=== PATIENT | female | born 1935 | race Caucasian/White ===

== ENCOUNTER 2017-06-10 16:38 | Inpatient (IN) | payer OTHER, MEDICARE ==
[~2017-06-10] VITALS: Ht 154.9 cm; Wt 78.0 kg
--- NOTE | ~2017-06-10 | D ---
[facility] [place] [address] DISCHARGE SUMMARY Name: IONA SYED Room #: 364-P [facility] IN M.R.#: [id number] Admission: 06/10/17 Attend Phys: Aneudy Henriquez MD Discharge: 06/13/17 Date of : 31 Report #: [id number] THIS REPORT FOR: //name// CC: Harshal Henriquez FINAL DIAGNOSES: 1. Urinary tract infection. 2. Hypertension. 3. Encephalopathy. HOSPITAL COURSE: The patient was admitted from home with altered mental status. Urinalysis was consistent with infection. Unfortunately, a urine culture was never sent from the ER. It was too late to add once she received antibiotics. However, blood cultures were negative. She was noted to be tachycardic, but I felt this was more related to the fact she had not taken her beta grady for several days. Although she had an elevated white count, lab work was more consistent with dehydration from not eating for several days. She was not placed on sepsis protocol and actually was just treated on a regular medical floor with telemetry monitoring. With IV antibiotics, fluid support, resumption of her home medications, her symptoms improved overnight. PHYSICAL EXAMINATION: GENERAL: By the time of discharge, she was awake and alert with stable vital signs. LUNGS: Clear. HEART: Regular. ABDOMEN: Soft. Normoactive bowel sounds. EXTREMITIES: No edema. DISPOSITION: She will be discharged to home to resume regular diet, activity, medications with Cipro twice a day, home health. Her son is staying with her for several days. Follow up with Dr. Carolina in a week. <ELECTRONICALLY SIGNED> By: Aneudy Henriquez MD 06/14/17 1031 1237 1246 Aneudy Henriquez MD /nt
--- NOTE | ~2017-06-10 | EKG ---
[address] [address] ELECTROCARDIOGRAM REPORT Name: IONA SYED Room #: 170-5 ADM IN M.R.#: [id number] Admission: 06/10/17 Attend Phys: Aneudy Henriquez MD Discharge: Date of : 31 Report #: [id number] THIS REPORT FOR: //name// [facility] ED Test Date: 2017-06-10 Test Time: 20:50:00 Pat Name: IONA SYED Department: Room: 170 5 Gender: F Mental Telepathist: OTONIEL : 1935 Requested By: Jeff Maldonado Order Number: [id number] MD: Michael An Measurements Intervals [place] Rate: 131 P: [place]: QRS: -13 QRSD: 76 T: 259 QT: 333 QTc: 492 Interpretive Statements sinus tachycrdia vs atrial tachycardia Repolarization abnormality, prob rate related Borderline prolonged QT interval Compared to ECG 06/10/2017 17:25:04 Sinus tachycardia no longer present Atrial premature complex(es) no longer present Electronically Signed On 06-10-2017 21:07:24 CDT by Michael An [email or web address] <ELECTRONICALLY SIGNED> By: Michael An MD 06/10/172106 49 49 Michael An MD /EPI
--- NOTE | ~2017-06-10 | H ---
[facility] [place] [address] HISTORY AND PHYSICAL Name: IONA SYED Room #: 364-P ADM IN M.R.#: [id number] Admission: 06/10/17 Attend Phys: Aneudy Henriquez MD Discharge: Date of : 31 Report #: [id number] THIS REPORT FOR: //name// CC: Harshal Henriquez DATE OF SERVICE: 06/10/2017 CHIEF COMPLAINT: Weakness. HISTORY OF PRESENT ILLNESS: The patient is an 81-year-old female brought to the Emergency Room from home by her family with a report of weakness. Her son called earlier in the day and he reported that she seemed "confused." Then a nephew checked on her later in the day found her in bed. She appeared very weak and it looked like she has not been out of bed for several days. It was unclear whether she had taken any medications or had anything to eat or drink. She denied any real particular symptoms other than just feeling "tired" and weak all over. The family noted that she was just "not herself." PAST MEDICAL HISTORY: Osteoarthritis, hypertension, some unspecified history possibly of PSVT. PAST SURGICAL HISTORY: Hysterectomy, knee replacement. FAMILY HISTORY: Noncontributory. SOCIAL HISTORY: She lives alone. Her is . She has family in the area, no chronic alcohol or tobacco use. ALLERGIES: TETANUS, LISINOPRIL, MACRODANTIN, AUGMENTIN, MORPHINE, SULFA, LOSARTAN. MEDICATIONS: Prednisone 10 mg, Celebrex 200 mg, hydrocodone 7.5 mg, bethanechol 25 mg t.i.d., clonidine patch 0.2 mg weekly, Toprol-XL 100 mg b.i.d., Flomax 0.4 mg b.i.d., Cardizem CD 240 mg a day, Senokot. REVIEW OF SYSTEMS: She complains of feeling weak and tired. No headache, fever, chills, productive cough, shortness of breath, nausea, vomiting, diarrhea, constipation, dysuria, syncope. OBJECTIVE: VITAL SIGNS: Temperature 36.8, T-max has been 37.4, pulse 117, respirations 24, blood pressure 136/100 and O2 sat 97% on room air. GENERAL: She is awake and alert, sitting up in bed, recognizes me, in no distress. HEAD AND NECK: Unremarkable. [facility] [address] [place] [address] HISTORY AND PHYSICAL Name: IONA SYED Room #: 364-P [facility] IN M.R.#: [id number] Admission: 06/10/17 Attend Phys: Aneudy Henriquez MD Discharge: Date of : 31 Report #: [id number] LUNGS: Clear. HEART: Regular. ABDOMEN: Soft, normoactive bowel sounds. EXTREMITIES: No edema. NEUROLOGIC: Motor strength 3/5 throughout. LABORATORY AND X-RAY DATA: Reviewed. EKG considers sinus tachycardia with possible atrial tachycardia but there are repol changes due to LVH. ASSESSMENT: 1. Urinary tract infection. 2. Sinus tachycardia. 3. Hypertension. 4. Hypokalemia. 5. Toxic metabolic encephalopathy due to infection. PLAN: Antibiotics have been ordered. She has received IV Cardizem overnight and we will transition her to oral agents, therapies would be ordered and I will ask social work to see her regarding a skilled rehab stay. <ELECTRONICALLY SIGNED> By: Aneudy Henriquez MD 06/11/17 1430 0855 0923 Aneudy Henriquez MD /nt
--- NOTE | ~2017-06-10 | EKG ---
[address] [place] [address] ELECTROCARDIOGRAM REPORT Name: IONA SYED Room #: BRAD Mancini#: [id number] Admission: 06/10/17 Attend Phys: Discharge: Date of : 31 Report #: [id number] THIS REPORT FOR: //name// [facility] ED Test Date: 2017-06-10 Test Time: 17:25:04 Pat Name: IONA SYED Department: Room: Gender: F Stock Pitcher: : 1935 Requested By: Leonor Rich Order Number: [id number] MD: Michael An Measurements Intervals [place] Rate: 119 P: -13 [place]: 71 QRS: -8 QRSD: 79 T: -74 QT: 332 QTc: 468 Interpretive Statements Sinus tachycardia Atrial premature complex Consider right atrial enlargement Borderline repolarization abnormality Compared to ECG 08/14/2014 14:14:28 Aberrant conduction of supraventricular beat(s) no longer present Myocardial infarct finding no longer present ST (T wave) deviation no longer present Possible ischemia no longer present Electronically Signed On 06-10-2017 19:41:51 CDT by Michael An [email or web address] <ELECTRONICALLY SIGNED> By: Michael An MD 06/10/17 194 24 24 Michael An MD /EPI
[2017-06-10 16:38] VITALS: BP 157/106
[~2017-06-10 16:38] MED LIST: AMLODIPINE BESY10 MG PO; ATENOLOL 50 MG50 M1 PO; ATENOLOL-CHLOR1 EACH PO; BETHANECHOL PO; CARDIZEM CD240 MG PO; CATAPRES-TTS 20.2 MG TRANSDERM; CELEBREX 200 M200 MG PO; CLONIDINE HCL0.1 MG PO; DIAZEPAM 5 MG5 M1 PO; ESTRACE1 MG PO; ESTRADIOL 1 MG T1 M1 PO; FLOMAX PO; FLOMAX0.4 MG PO; HYDROCODON-ACE1 EACH PO; HYDROCODONE-APA1 TA1 PO; IRON325 PO; NIFEDIPINE ER30 MG PO; NYSTATIN POWDER TOP; PREDNISONE 20 M20 M1 PO; PREDNISONE 5 MG5 M1 PO; PROVERA2.5 MG PO; SENOKOT-S1 TA1 PO; TENORMIN50 MG PO; TOPROL XL100 MG PO
[2017-06-10 17:05] LABS: ABSOLUTE NEUTROPHILS 12.7 thou/uL (1.4-8.2); BASOPHILS 0.4 % (0.0-2.0); HEMATOCRIT 46.8 % (37.0-47.0); HEMOGLOBIN 15.7 gm/dL (12.0-15.0); LYMPHOCYTES 10.6 % (24.0-44.0); MANUAL DIFF NO; MCH 31.8 pg (26.0-34.0); MCHC 33.5 g/dL (28.0-37.0); MONOCYTES 6.5 % (1.0-8.0); PLATELET COUNT 266 thou/uL (150-400); POLYS 82.5 % (36.0-66.0); RBC 4.92 mil/uL (4.20-5.00); RDW 13.6 % (10.5-14.5); WBC 15.4 thou/uL (4.0-11.0)
[2017-06-10 17:14] LABS: CALCIUM 9.9 mg/dL (8.5-10.1); CREATININE 0.9 mg/dL (0.6-1.0); POTASSIUM 3.1 mmol/L (3.5-5.1)
[2017-06-10 18:15] LABS: URINE BILIRUBIN 2+ (Negative); URINE BLOOD 1+ (Negative); URINE GLUCOSE-RANDOM* NEGATIVE (Negative); URINE KETONES 1+ (Negative); URINE LEUKOCYTES-REFLEX NEGATIVE (Negative); URINE PROTEIN (DIPSTICK) 2+ (Negative); URINE SPECIFIC GRAVITY >= 1.030 (1.003-1.035); URINE UROBILINOGEN 0.2 E.U./dl (0.2-1.0)
[2017-06-10 18:16] LABS: URINE COLOR STRAW
[2017-06-10 18:17] LABS: ICTOTEST (BILI CONFIRMATORY) Negative (Negative)
[2017-06-10 18:22] LABS: HYALINE CASTS 0-3 Few /LPF (None Seen)
[2017-06-10 18:23] LABS: CASTS None Seen /LPF (None Seen); COARSE GRANULAR CASTS 0-3 Few /LPF (None Seen); SQUAMOUS 0-3 Few /LPF (0-3); URINE RBC 3-10 Few /HPF (0-2); URINE WBC-REFLEX 0-5 Rare /HPF (0-5); WBC CLUMPS Rare (None Seen)
[2017-06-10 18:24] LABS: CRYSTALS None Seen /LPF (None Seen)
[2017-06-10 20:21] VITALS: BP 166/90
[2017-06-10 22:00] VITALS: BP 160/89
[2017-06-10 22:08] VITALS: BP 167/92
[2017-06-11 05:11] VITALS: BP 152/85
[2017-06-11 08:07] VITALS: BP 136/100
[2017-06-11 11:30] VITALS: BP 147/82
[2017-06-11 12:14] LABS: HEMATOCRIT 40.9 % (37.0-47.0); MCH 31.6 pg (26.0-34.0); MCHC 33.2 g/dL (28.0-37.0); MCV 95.2 fL (80.0-100.0); RBC 4.3 mil/uL (4.20-5.00); RDW 13.1 % (10.5-14.5)
[2017-06-11 12:16] LABS: HEMOGLOBIN 13.6 gm/dL (12.0-15.0)
[2017-06-11 12:19] LABS: CALCIUM 8.6 mg/dL (8.5-10.1); CREATININE 0.7 mg/dL (0.6-1.0); POTASSIUM 3.2 mmol/L (3.5-5.1)
[2017-06-11 17:07] VITALS: BP 102/57
[2017-06-11 20:00] VITALS: BP 111/61
[2017-06-12 04:52] VITALS: BP 125/88
[2017-06-12 06:12] LABS: HEMATOCRIT 39.6 % (37.0-47.0); HEMOGLOBIN 13.1 gm/dL (12.0-15.0); MCH 32.1 pg (26.0-34.0); MCHC 33.1 g/dL (28.0-37.0); MCV 96.7 fL (80.0-100.0); RBC 4.09 mil/uL (4.20-5.00); RDW 13.5 % (10.5-14.5); WBC 9.7 thou/uL (4.0-11.0)
[2017-06-12 06:29] LABS: CALCIUM 8.7 mg/dL (8.5-10.1); CREATININE 0.8 mg/dL (0.6-1.0); POTASSIUM 3.5 mmol/L (3.5-5.1)
[2017-06-12 07:16] VITALS: BP 95/63
[2017-06-12 11:15] VITALS: BP 107/50
[2017-06-12 16:53] VITALS: BP 115/49
[2017-06-12 19:15] VITALS: BP 126/51
[2017-06-13 05:10] VITALS: BP 142/74
[2017-06-13 09:02] VITALS: BP 158/95
[2017-06-13] MEDS ORDERED: ATENOLOL 50MG T50 M1 PO (12:29)
[2017-06-13] MEDS ORDERED: AMLODIPINE BESYL5 M1 PO (12:30)
[2017-06-13] MEDS ORDERED: CIPRO250 M1 PO (12:31)
[2017-06-13 13:08] VITALS: BP 145/81
[2017-06-13 13:09] VITALS: BP 145/81
[2017-06-13 13:36] VITALS: BP 145/81
[2017-06-13 14:11] VITALS: BP 145/81
== END 2017-06-13 15:42 | disposition home health service (06) | DRG 689 ==
LOC: ER 16:38 → EROBS 19:58 → 3W 19:58 → ENTRNSPT 06-13 15:05 → EDTRNSPTSTS 06-13 15:08 → 3W 06-13 15:42
PROVIDERS: Emergency Medicine; Internal Medicine Geriatric Medicine
DX: N39.0 Urinary tract infection, site not specified (principal); G92 Toxic encephalopathy; Z96.651 Presence of right artificial knee joint; I10 Essential (primary) hypertension; E86.0 Dehydration; E87.6 Hypokalemia; R00.0 Tachycardia, unspecified; Z90.710 Acquired absence of both cervix and uterus; Z88.8 Allergy status to other drugs, medicaments and biological substances; Z88.1 Allergy status to other antibiotic agents; Z88.5 Allergy status to narcotic agent; Z23 Encounter for immunization; Z91.013 Allergy to seafood; Z88.7 Allergy status to serum and vaccine; Z88.2 Allergy status to sulfonamides
CPT/HCPCS: 10779

== ENCOUNTER 2017-07-02 17:55 | Inpatient (IN) | payer OTHER, MEDICARE ==
[~2017-07-02] VITALS: Ht 154.9 cm; Wt 68.0 kg
--- NOTE | ~2017-07-02 | EKG ---
[address] [address] ELECTROCARDIOGRAM REPORT Name: IONA SYED Room #: 412-P ADM IN M.R.#: [id number] Admission: 07/02/17 Attend Phys: Garrett Hammer Discharge: Date of : 31 Report #: [id number] THIS REPORT FOR: //name// [facility] ED Test Date: 2017-07-02 Test Time: 18:13:06 Pat Name: IONA SYED Department: Room: 412 Gender: F Side Seam Tender: [id number] : 1935 Requested By: Jon Castillo Order Number: [id number] MD: Michael An Measurements Intervals [place] Rate: 94 P: [place]: QRS: 8 QRSD: 87 T: 133 QT: 406 QTc: 508 Interpretive Statements Atrial fibrillation Anteroseptal infarct, age indeterminate Compared to ECG 06/10/2017 20:50:00 Myocardial infarct finding now present Early repolarization no longer present Electronically Signed On 07-02-2017 21:37:16 [employer] SERVICE SUPERVISOR by Michael An [email or web address] <ELECTRONICALLY SIGNED> By: Michael An MD 07/02/172136 12 12 Michael An MD /EPI
--- NOTE | ~2017-07-02 | H ---
[facility] [place] [address] HISTORY AND PHYSICAL Name: IONA SYED Room #: 412-P ADM IN M.R.#: [id number] Admission: 07/02/17 Attend Phys: Garrett Hammer Discharge: Date of : 31 Report #: [id number] THIS REPORT FOR: //name// CC: Harshal Carolina DATE OF SERVICE: 07/02/2017 HISTORY OF PRESENT ILLNESS: This is a patient well known to my service at 81 years of age, who has failed at home. This is a patient who I have been caring for probably over 20 years. Apparently, she has been weakened at home and yesterday morning, got up and could not get out of bed because of generalized pain predominantly in her hands. She was brought to the Emergency Room and their analysis was dehydration. PAST MEDICAL HISTORY: Noteworthy for osteoarthritis. She has had knee replacement. She has a history of hypertension. 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 She also has a history of hysterectomy as well. MEDICATIONS: List includes Tenormin, Norvasc, Celebrex, Estrace, clonidine, prednisone. ALLERGIES: Numerous allergies as noted. FAMILY HISTORY: Negative. SOCIAL HISTORY: She has a son who lives in [facility] in [place]. He does the best he can to help his mother. No smoking or alcohol. REVIEW OF SYSTEMS: No cardiopulmonary or GI complaints, everything is mainly pain related from her joints. PHYSICAL EXAMINATION: GENERAL: Shows her to be in mild distress from the pain. She cannot move her left arm because of the pain. HEENT: Otherwise, negative. NECK: Supple without thyromegaly or adenopathy. CHEST: Clear. CARDIOVASCULAR: Shows a regular rate and rhythm. ABDOMEN: Soft and nontender. EXTREMITIES: Negative, but she did have marked tenderness of both wrists and she could not move her left arm because of pain. She was barely able to move her lower extremities. I did not get the sense that this was stroke related. I felt that it was mainly pain related. I reviewed all of her laboratory parameters, which appeared to be stable. [facility] [address] [place] [address] HISTORY AND PHYSICAL Name: IONA SYED Room #: 412-P [facility] IN M.R.#: [id number] Admission: 07/02/17 Attend Phys: Garrett Hammer Discharge: Date of : 31 Report #: [id number] ASSESSMENT: 1. This is an 81-year-old female with an acute arthritic process, seems inflammatory to me, the possibility of pseudogout, which she has had in the past is at least a consideration. 2. Hypertension. 3. Degenerative joint disease. 4. Chronic pain. PLAN: Steroids, rehab, and close monitoring. By: 1133 1255 Harshal Carolian MD /PMT
[~2017-07-02 17:55] MED LIST changes: +AMLODIPINE BESYL5 M1 PO; +ATENOLOL 50MG T50 M1 PO; +CIPRO250 M1 PO
[2017-07-02 18:00] VITALS: BP 151/63
[2017-07-02 18:28] LABS: HEMATOCRIT 46.3 % (37.0-47.0); HEMOGLOBIN 15.4 gm/dL (12.0-15.0); MCH 31.5 pg (26.0-34.0); MCHC 33.2 g/dL (28.0-37.0); MCV 94.9 fL (80.0-100.0); PLATELET COUNT 211 thou/uL (150-400); RBC 4.88 mil/uL (4.20-5.00); RDW 13.3 % (10.5-14.5); WBC 17.6 thou/uL (4.0-11.0)
[2017-07-02 18:29] LABS: MANUAL DIFF YES
[2017-07-02 18:37] LABS: ANION GAP 18 mmol/L (7-16); BUN 19 mg/dL (7-18); CALCIUM 9.4 mg/dL (8.5-10.1); CHLORIDE 101 mmol/L (98-107); CO2 20 mmol/L (21-32); CREATININE 0.8 mg/dL (0.6-1.0); GLUCOSE 147 mg/dL (74-106); POTASSIUM 3.3 mmol/L (3.5-5.1); SODIUM 139 mmol/L (136-145)
[2017-07-02 18:46] LABS: ALKALINE PHOSPHATASE 96 U/L (46-116); DIRECT BILIRUBIN 0.4 mg/dL (<0.1-0.3); SGOT 11 U/L (15-37); SGPT 9 U/L (30-65); TOTAL BILIRUBIN 1.5 mg/dL (<0.1-1.0); TOTAL PROTEIN 7.5 g/dL (6.4-8.2); TROPONIN-I < 0.04 ng/mL (<0.06)
[2017-07-02 18:53] LABS: ABSOLUTE NEUTROPHILS 15.3 thou/uL (1.4-8.2); TOTAL CELL COUNT 100
[2017-07-02 18:54] LABS: ANISOCYTOSIS 1+; POLYCHROMASIA OCCASIONAL
[2017-07-02 18:56] LABS: URINE BILIRUBIN 2+ (Negative); URINE BLOOD NEGATIVE (Negative); URINE COLOR YELLOW; URINE GLUCOSE-RANDOM* NEGATIVE (Negative); URINE KETONES 2+ (Negative); URINE NITRITE NEGATIVE (Negative); URINE PROTEIN (DIPSTICK) 1+ (Negative); URINE SPECIFIC GRAVITY >= 1.030 (1.003-1.035)
[2017-07-02 19:02] LABS: ICTOTEST (BILI CONFIRMATORY) Positive (Negative)
[2017-07-02 19:04] LABS: BACTERIA 1-9 Few /HPF (None Seen); CASTS None Seen /LPF (None Seen); CRYSTALS None Seen /LPF (None Seen); SQUAMOUS 0-3 Few /LPF (0-3); URINE RBC None Seen /HPF (0-2); URINE WBC 0-5 Rare /HPF (0-5)
[2017-07-02] MEDS ORDERED: CELEBREX 200 M200 M1 PO (19:08)
[2017-07-02] MEDS ORDERED: ESTRADIOL 1 MG T1 M1 PO (19:09)
[2017-07-02] MEDS ORDERED: CLONIDINE0.1 PO (19:09)
[2017-07-02 21:04] VITALS: BP 154/80
[2017-07-02 21:40] VITALS: BP 143/73
[2017-07-03 03:25] VITALS: BP 127/63
[2017-07-03 04:55] LABS: HEMATOCRIT 41.3 % (37.0-47.0); MCH 30.6 pg (26.0-34.0); MCHC 32.2 g/dL (28.0-37.0); MCV 95.1 fL (80.0-100.0); RBC 4.34 mil/uL (4.20-5.00); RDW 13.4 % (10.5-14.5); WBC 13.8 thou/uL (4.0-11.0)
[2017-07-03 05:04] LABS: ALBUMIN 2.4 g/dL (3.4-5.0); CALCIUM 8.8 mg/dL (8.5-10.1); CREATININE 0.8 mg/dL (0.6-1.0); HEMOGLOBIN 13.3 gm/dL (12.0-15.0); POTASSIUM 3.1 mmol/L (3.5-5.1); TOTAL BILIRUBIN 1.2 mg/dL (<0.1-1.0); TOTAL PROTEIN 6.5 g/dL (6.4-8.2)
[2017-07-03 07:25] VITALS: BP 133/79
[2017-07-03 11:00] VITALS: BP 128/66
[2017-07-03 20:00] VITALS: BP 136/73
[2017-07-04 00:06] VITALS: BP 114/58
[2017-07-04 04:00] VITALS: BP 115/63
[2017-07-04 08:55] VITALS: BP 97/55
[2017-07-04 15:38] VITALS: BP 91/45
[2017-07-04 19:40] VITALS: BP 101/53
[2017-07-05 04:35] VITALS: BP 141/81
[2017-07-05 07:08] VITALS: BP 129/75
[2017-07-05] MEDS ORDERED: PREDNISONE 20 M20 M1 PO (07:55)
[2017-07-05] MEDS ORDERED: AMLODIPINE BESYL5 MG PO (07:55)
[2017-07-05] MEDS ORDERED: ATENOLOL 50MG T50 MG PO (07:55)
[2017-07-05] MEDS ORDERED: NORCO 7.5-3251 EACH PO (07:55)
[2017-07-05] MEDS ORDERED: CATAPRES0.1 MG PO (07:55)
== END 2017-07-05 14:55 | DRG 553 ==
LOC: ER 17:55 → 4N 20:39 → EROBS 20:39 → 4N 21:14 → 4E 07-04 16:40
PROVIDERS: Nurse Practitioner
DX: M11.20 Other chondrocalcinosis, unspecified site (principal); E43 Unspecified severe protein-calorie malnutrition; N39.0 Urinary tract infection, site not specified; I10 Essential (primary) hypertension; G89.29 Other chronic pain; M19.90 Unspecified osteoarthritis, unspecified site; E87.6 Hypokalemia; E86.0 Dehydration; Z96.651 Presence of right artificial knee joint; Z28.21 Immunization not carried out because of patient refusal; Z90.710 Acquired absence of both cervix and uterus; Z88.1 Allergy status to other antibiotic agents; Z88.5 Allergy status to narcotic agent; Z88.2 Allergy status to sulfonamides; Z88.8 Allergy status to other drugs, medicaments and biological substances
CPT/HCPCS: 10783; 10790

== ENCOUNTER → 2017-08-09 | Outpatient (CLI) | payer OTHER, MEDICARE ==
[~2017-08-09] MED LIST changes: +AMLODIPINE BESYL5 MG PO; +ATENOLOL 50MG T50 MG PO; +CATAPRES0.1 MG PO; +CELEBREX 200 M200 M1 PO; +CLONIDINE0.1 PO; +NORCO 7.5-3251 EACH PO
[2017-08-09 13:01] LABS: HEMOGLOBIN 15.4 gm/dL (12.0-15.0); MCH 31.5 pg (26.0-34.0); MCHC 33.5 g/dL (28.0-37.0); MCV 93.8 fL (80.0-100.0); RBC 4.91 mil/uL (4.20-5.00); RDW 14.6 % (10.5-14.5); WBC 9.8 thou/uL (4.0-11.0)
[2017-08-09 13:09] LABS: CALCIUM 9.1 mg/dL (8.5-10.1); POTASSIUM 3.6 mmol/L (3.5-5.1)
[2017-08-09 13:15] LABS: ALBUMIN 3.2 g/dL (3.4-5.0); TOTAL BILIRUBIN 0.6 mg/dL (<0.1-1.0); TOTAL PROTEIN 6.7 g/dL (6.4-8.2)
== END ==
LOC: CAT 12:21
PROVIDERS: Internal Medicine
DX: R41.3 Other amnesia (principal); R41.82 Altered mental status, unspecified

== ENCOUNTER 2017-09-01 22:14 | Emergency (ER) | payer OTHER, MEDICARE ==
[~2017-09-01] VITALS: Ht 167.6 cm; Wt 65.8 kg
--- NOTE | ~2017-09-01 | EKG ---
[place] [address] [facility] [place] [address] ELECTROCARDIOGRAM REPORT Name: IONA SYED Room #: DEP Live#: [id number] Admission: 09/01/17 Attend Phys: Discharge: 09/02/17 Date of : 31 Report #: [id number] THIS REPORT FOR: //name// [facility] ED Test Date: 2017-09-01 Test Time: 22:38:47 Pat Name: IONA SYED Department: Room: Gender: F Jack Prizer: STACY : 1935 Requested By: Isidro Gregory Order Number: [id number] MD: Danny Huffman Measurements Intervals [place] Rate: 118 P: 121 [place]: 106 QRS: -22 QRSD: 113 T: -62 QT: 351 QTc: 492 Interpretive Statements Atrial fibrillation Incomplete right bundle branch block Low voltage, precordial leads Borderline prolonged QT interval Compared to ECG 07/02/2017 18:13:06 Incomplete right bundle-branch block now present Low QRS voltage now present Myocardial infarct finding no longer present Electronically Signed On 09-02-2017 9:54:10 BRAND COORDINATOR by Danny Huffman [email or web address] <ELECTRONICALLY SIGNED> By: Danny Huffman MD 09/02/17 0954 37 37 Danny Huffman MD /[facility]
[2017-09-01 22:38] LABS: BE(vivo) -29.9 mmol/L (-2 to +3); HCO3 7.5 mmol/L (22.0-26.0); PCO2 68.5 mmHg (35.0-45.0); PO2 270.7 mmHg (80.0-100.0); sO2 98.6 % (92.0-98.0)
[2017-09-01 22:56] LABS: MCH 30.8 pg (26.0-34.0); MCHC 29.2 g/dL (28.0-37.0); MCV 105.7 fL (80.0-100.0); PLATELET COUNT 225 thou/uL (150-400); RBC 3.88 mil/uL (4.20-5.00); RDW 18.1 % (10.5-14.5); WBC 25.4 thou/uL (4.0-11.0)
[2017-09-01 23:10] LABS: APTT 48.9 Seconds (24.5-32.8); INR 1.4; PROTIME 13.9 Seconds (9.3-11.4)
[2017-09-01 23:34] LABS: ABSOLUTE NEUTROPHILS 9.9 thou/uL (1.4-8.2); METAMYELOCYTES 1 %; MYELOCYTES 4 %; PROMYELOCYTES 2 %
[2017-09-01 23:35] LABS: ANISOCYTOSIS 2+; LARGE PLATELETS RARE; MACROCYTES 2+; POLYCHROMASIA OCCASIONAL
[2017-09-02 00:34] VITALS: BP 00/00
[2017-09-26 08:47] LABS: POC CREATININE 1.2 mg/dL (0.6-1.3); POC HEMOGLOBIN 12.9 g/dL (12.0-15.0); POC POTASSIUM 4.9 mmol/L (3.5-5.1)
== END 2017-09-02 01:18 ==
LOC: ER 22:14
PROVIDERS: Emergency Medicine
DX: I46.9 Cardiac arrest, cause unspecified (principal); E87.2 Acidosis